=== PATIENT | male | born 1995 | race African-American/Black ===

== ENCOUNTER 2019-09-07 22:53 | Emergency (ER) | payer OTHER, SELFPAY ==
[2019-09-08] MEDS ORDERED: Ondansetron ODT 8 MG TAB ONE (01:14)
--- NOTE | 2019-09-08 08:03 | RAD ---
RADIOGRAPH CHEST 1 VIEW: DATE: 09/08/2019 HISTORY: 24-year-old male with chest pain FINDINGS: There is no airspace density, pulmonary edema, or pneumothorax. The lateral costophrenic angles are n ot effaced. IMPRESSION: No acute pulmonary findings.
== END 2019-09-08 01:37 | disposition home or self-care (01) ==
LOC: ERS 22:53
DX: R11.2 Nausea with vomiting, unspecified (principal); R42 Dizziness and giddiness
CPT/HCPCS: 71045; 93005

== ENCOUNTER 2019-10-20 09:54 | Emergency (ER) | payer OTHER, SELFPAY | END 2019-10-20 10:50 | disposition home or self-care (01) | LOC: ERS 09:54 | DX: S39.012A Strain of muscle, fascia and tendon of lower back, initial encounter (principal); V89.2XXA Person injured in unspecified motor-vehicle accident, traffic, initial encounter | CPT/HCPCS: 99282 ==

== ENCOUNTER 2020-07-09 08:42 | Emergency (ER) | payer SELFPAY ==
--- NOTE | 2020-07-09 09:27 | RAD ---
XR Ankle Lt 3 View STANDARD INDICATION: Ankle injury yesterday COMPARISON: None. FINDINGS: Bones: Intact. Ankle mortise: Symmetric. Talar Dome: Intact. Subtalar joint: Normal. Visualized hindfoot: Normal. Periarticular soft tissues: Normal. IMPRESSION: 1. No acute fracture or subluxation demonstrated.
== END 2020-07-09 09:43 | disposition home or self-care (01) ==
LOC: ERS 08:42
DX: S93.402A Sprain of unspecified ligament of left ankle, initial encounter (principal); F17.210 Nicotine dependence, cigarettes, uncomplicated; X50.1XXA Overexertion from prolonged static or awkward postures, initial encounter

== ENCOUNTER 2021-08-23 21:05 | Emergency (ER) | payer SELFPAY | END 2021-08-24 00:07 | disposition home or self-care (01) | LOC: ERS 21:05 | DX: S60.122A Contusion of left index finger with damage to nail, initial encounter (principal); F17.210 Nicotine dependence, cigarettes, uncomplicated | CPT/HCPCS: 99283 ==

== ENCOUNTER 2022-08-13 09:11 | Emergency (ER) | payer SELFPAY ==
[2022-08-13 10:21] LABS: #Basophils 0.1 thou/uL (0.0-0.2); #Eosinphils 0.1 thou/uL (0.0-0.7); #Lymphocytes 1.2 thou/uL (1.20-3.40); #Monocytes 0.4 thou/uL (0.11-0.59); #Neutrophils 8.2 thou/uL (1.40-6.50); %Basophils 0.7 % (0.0-1.0); %Eosinophils 1.4 % (0.0-10.0); %Lymphocytes 11.6 % (21.0-51.0); %Monocytes 4.4 % (0.0-10.0); %Neutrophils 81.9 % (42.0-75.0); Hemoglobin 16.7 g/dL (14.0-18.0); Mean Corpuscular HGB CONC 31.5 g/dL (32.0-36.0); Mean Corpuscular Hemoglobin 27.5 pg (27.0-31.0); Mean Corpuscular Volume 87.4 fl (78.0-98.0); Mean Platelet Volume 9.4 fL (7.4-10.4); Platelet Count 220 thou/uL (130-400); RBC Distribution Width 12.2 % (11.5-14.5); Red Blood Cell (RBC) Count 6.06 mill/uL (4.70-6.10)
[2022-08-13 10:34] LABS: ALT (SGPT) 24 U/L (8-55); AST (SGOT) 22 U/L (5-34); Albumin 4.8 g/dL (3.5-5.0); Alkaline Phosphatase 61 U/L (40-110); Anion Gap 10 mmol/L (10-20); BUN (Urea Nitrogen) 16 mg/dL (8.9-20.6); Bilirubin, Total 0.6 mg/dL (0.2-1.2); Calc. Creatinine Clearance 0 mL/min (70-130); Calcium 9.5 mg/dL (7.8-10.44); Carbon Dioxide 27 mmol/L (22-29); Chloride 106 mmol/L (98-107); Estimated GFR 99; Globulin 2.9 g/dL (2.4-3.5); Glucose 97 mg/dL (70-105); Lipase 24 U/L (8-78); Potassium 4.6 mmol/L (3.5-5.1); Protein, Total 7.7 g/dL (6.0-8.3); Sodium 138 mmol/L (136-145)
[2022-08-13] MEDS ORDERED: Dicyclomine 20 MG/2 ML VIAL ONE (10:56)
[2022-08-13 12:21] LABS: Bilirubin Negative (Negative); Blood, Urine Negative (Negative); Clarity Clear (Clear); Glucose, Urine (Dipstick) Normal (Negative); Ketone, Urine Negative (Negative); Leukocyte Negative Leu/uL (Negative); Nitrite Negative (Negative); Protein, Urine (Dipstick) Negative (Neg-Trace); Specific Gravity, Urine 1.028 (1.002-1.036); Urobilinogen Normal mg/dL (Less than 2)
== END 2022-08-13 12:07 | disposition home or self-care (01) ==
LOC: ERS 09:11
DX: R10.9 Unspecified abdominal pain (principal); R11.2 Nausea with vomiting, unspecified; F17.210 Nicotine dependence, cigarettes, uncomplicated
CPT/HCPCS: 36415; 80053; 81003; 83690; 85025; 96372; 99284

== ENCOUNTER 2023-04-28 12:36 | Emergency (ER) | payer BC, SELFPAY ==
[2023-04-29 11:20] LABS: Syphilis Antibody Index 19.38 S/CO (<1.00 Non-Reactive)
[2023-04-29 18:05] LABS: Syphilis Antibody REACTIVE (Nonreactive); Syphilis Titer 1:32 Titer (Negative)
== END 2023-04-28 14:20 | disposition home or self-care (01) ==
LOC: ERS 12:36
DX: A53.9 Syphilis, unspecified (principal)
CPT/HCPCS: 36415; 86593; 86780; 99283